=== PATIENT | female | born 1980 | race Hispanic/Latino ===

== ENCOUNTER → 2019-03-18 | Day surgery (SDC) | payer OTHER ==
[~2019-03-18] MED LIST: BALANCED SALT SOLN (OPTH) 15 ML BTL IO ONE; FENTANYL CITRATE/PF 100MCG/2 ML INJ ONE; LEVOTHYROXINE75 MCG PO; LIDOCAINE 2% /EPINEPHRINE 20 ML SDV INJ ONE; MIDAZOLAM HCL 2 MG/2 ML VIAL ONE; MITOMYCIN-PF OPTH SYRINGE 0.3 MG/ML OP ONE; NEOMYCIN/POLYMYXIN/DEX (OPTH) 3.5 GM TUBE ONE; POVIDONE IODINE 5% (OPTH) 30 ML BTL ONE
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
[2019-03-18 15:35] VITALS: BP 115/75
--- NOTE | 2019-03-18 22:22 | Operative Report ---
DATE OF PROCEDURE: 03/18/2019 SURGEON: Nick Ibrahim MD PREOPERATIVE DIAGNOSIS: Large nasal pterygium of the left eye. POSTOPERATIVE DIAGNOSIS: Large nasal pterygium of the left eye. PROCEDURES: 1. Pterygium excision, left eye, nasal. 2. Amniotic membrane graft placement in the left eye, nasal. 3. Superficial keratectomy, left eye, nasal. 4. Mitomycin-C 0.25 mg/mL, placed in the left eye conj for 60 seconds. ANESTHESIA: MAC. COMPLICATIONS: None. The serial number for the graft is [id number]. DESCRIPTION OF PROCEDURE: The patient was taken to the operating room, where she received tetracaine drops placed on the eye. The patient was prepped and draped in the usual sterile ophthalmic way. A lid speculum was placed in the left eye. A 6-0 sterile stay suture was placed at the limbus and the pterygium was localized and very carefully marked with a marking pen. Then, I placed 0.3 mL of lidocaine 2% with epinephrine into the pterygium. After two minutes, I removed the pterygium with Jose scissors and 0.12 forceps away from the sclera and cornea. Once this was removed, I sent to pathology. A carlos was used to perform a superficial keratectomy and removed the residual debris from the cornea. Wet-Field cautery was used to control any bleeding. Mitomycin was soaked in the cottonoid, placed 0.25 mg/mL concentration and placed for 60 seconds. It was then removed. Copious amounts of BSS solution was used to irrigate the residual mitomycin from eye. The amniotic membrane was cut to size and measured 10 x 15 mm, it was secured using fibrin and thrombin glue. Excess glue and tissue were cut to size using Jose scissors and 0.12 forceps. Prior to this, Wet-Field cautery was used to control any bleeding and once this was done, Vigamox drops, patch, and Amado shield were placed on the eye. The patient tolerated the procedure well and was sent to the recovery room. The patient will be seen in my office tomorrow. Nick Ibrahim MD SES/MODL /[id number]
== END | disposition home or self-care (01) ==
LOC: OR 11:46
PROVIDERS: ATTEND Ophthalmology
DX: H11.052 Peripheral pterygium, progressive, left eye (principal); E03.9 Hypothyroidism, unspecified
CPT/HCPCS: 65426; 81025; 88304; J2001; J2250; J3010; J7315; V2790

== ENCOUNTER → 2019-04-08 | Day surgery (SDC) | payer OTHER ==
[~2019-04-08] MED LIST changes: +BUPIVACAINE HC 0.75% PF 10ML VIAL INJ ONE; -LIDOCAINE 2% /EPINEPHRINE 20 ML SDV INJ ONE; +LIDOCAINE 2%/ EPINEPHRINE 20ML MDV ONE; +LIDOCAINE HCL 1% 30ML-PF VIAL ONE; -MITOMYCIN-PF OPTH SYRINGE 0.3 MG/ML OP ONE
[2019-04-08 16:15] VITALS: BP 122/74
--- NOTE | 2019-04-24 10:04 | Operative Report ---
DATE OF PROCEDURE: 03/18/2019 SURGEON: Nick Ibrahim MD PREOPERATIVE DIAGNOSIS: Large nasal pterygium of the left eye, nasal. POSTOPERATIVE DIAGNOSIS: Large nasal pterygium of the left eye, nasal. PROCEDURES: 1. Pterygium excision, left eye, nasal. 2. Amniotic membrane placement in the left eye, nasal. 3. Superficial keratectomy, left eye, nasal. 4. Mitomycin-C 0.25 mg/mL, left eye, nasal, 60 seconds. ANESTHESIA: MAC. COMPLICATIONS: None. DESCRIPTION OF PROCEDURE: The patient was taken to the operating room where eye was prepped and draped in usual sterile ophthalmic way. A lid speculum was placed in the left eye and tetracaine drops were placed on the left eye. A 6-0 sterile stay sutures were placed temporally at the limbus and the pterygium was localized. It was measured with a marking pen and 0.2 mL of lidocaine 2% with epinephrine were injected to the pterygium. Once this was done, Jose scissors and 0.12 forceps were used to remove the pterygium away from the sclera and cornea and it was sent to Pathology. Wet-Field cautery was used to control any bleeding. A superficial keratectomy was performed using a carlos to remove the residual debris from the cornea. Mitomycin was soaked in the cottonoid, placed at the edge of the conj for 60 seconds. Copious amounts of BSS solution were used to irrigate this off once the mitomycin was removed. The amniotic membrane measured 10 x 15 mm. It was secured using fibrin and thrombin glue. Excess tissue and glue were removed using 0.12 forceps and Jose scissors. The patient had Maxitrol ointment, patch, and Amado shield placed in the eye and tolerated the procedure well. The patient will be seen in my office tomorrow. Nick Ibrahim MD SES/MODL /[id number]
--- NOTE | 2019-06-12 16:16 | Operative Report ---
DATE OF PROCEDURE: 04/08/2019 SURGEON: Nick Ibrahim MD PREOPERATIVE DIAGNOSIS: Very large nasal pterygium of the right eye. POSTOPERATIVE DIAGNOSIS: Very large nasal pterygium of the right eye. PROCEDURES: 1. Pterygium excision, right eye, nasal. 2. Amniotic membrane graft placement in the right eye, nasal. 3. Superficial keratectomy, right eye, nasal. 4. Mitomycin-C 0.25 mg/mL, placed for 60 seconds in the right eye, nasal. ANESTHESIA: MAC. COMPLICATIONS: None. DESCRIPTION OF PROCEDURE: The patient was taken to the operating room, where she was prepped and draped in the usual sterile ophthalmic way. Tetracaine drops were placed in the right eye. A lid speculum was placed in the right eye and a 6-0 sterile stay suture was placed at the limbus and the pterygium was localized and very carefully removed away from the sclera and cornea using 0.12 forceps and Jose scissors. Prior to removing this, we injected 0.33 mL of lidocaine with epinephrine 2%. Once this pterygium was removed, we sent to pathology. A superficial keratectomy was used to remove the residual debride from the cornea and the sclera using a carlos. Once this was done, mitomycin was soaked in the cottonoid, 0.25 mg/mL placed at the edge of the conj for 60 seconds and then copious amounts of BSS solution were used to irrigate this off. Wet-field cautery was used to control the bleeding. The amniotic membrane graft measured 10 x 15 mm, it was secured using fibrin and thrombin glue. Excess glue and tissue were cut using Jose scissors. Maxitrol ointment and patch and Amado shield placed in the eye. The patient tolerated the procedure well. The patient will be seen in my office tomorrow. The amniotic graft serial number is [id number]. MD MASTER Pfeiffer/MODL /[id number]
== END | disposition home or self-care (01) ==
LOC: OR 11:23
PROVIDERS: ATTEND Ophthalmology
DX: H11.051 Peripheral pterygium, progressive, right eye (principal); E03.9 Hypothyroidism, unspecified; I49.9 Cardiac arrhythmia, unspecified
CPT/HCPCS: 65426; 81025; 88304; J2001; J2250; J3010; V2790